=== PATIENT | female | born 1935 | race Caucasian/White ===

== ENCOUNTER 2020-11-30 08:29 | Outpatient (REF) | payer MEDICARE, SELFPAY ==
--- NOTE | ~2020-11-30 | MM_ITS ---
EXAMINATION: MM SCREENING DIGITAL BREAST TOMOSYNTHESIS, BILATERAL CLINICAL INFORMATION: Screening. Asymptomatic. Age 85 (no TC calculation applicable). COMPARISON: Mammography: 11/27/2019, 10/05/2018, 08/08/2017 TECHNIQUE: Digital breast tomosynthesis is performed in both the craniocaudal and mediolateral oblique views along with computer-aided detection (CAD). Synthesized 2D images are generated from the tomosynthesis. FINDINGS: There are scattered areas of fibroglandular density (ACR BI-RADS breast composition Category b). There are no significant masses, abnormal calcifications, or other abnormalities. Parenchymal pattern is similar to prior exams. No significant changes. MM/MM tomosynthesis screening BI IMPRESSION: No mammographic evidence of malignancy. ASSESSMENT: BI-RADS 1: Negative RECOMMENDATION: Routine annual mammography screening. This patient's information was entered into a reminder system with a target due date for their next mammogram.
== END 2020-11-30 08:30 | disposition home or self-care (01) ==
LOC: HO.MAMMO 08:29
PROVIDERS: PCP Internal Medicine; Visit Provider Internal Medicine
DX: Z12.31 Encounter for screening mammogram for malignant neoplasm of breast (principal)
CPT/HCPCS: 77063; 77067

== ENCOUNTER 2021-04-10 10:21 | Outpatient (REF) | payer MEDICARE, SELFPAY ==
[2021-04-10 10:23] LABS: MANUAL DIFF FLAG NO
[2021-04-10 10:37] LABS: Basophils Percent Auto 0.4 % (0-2); Hematocrit 42.1 % (37-47); Hemoglobin 13.6 g/dl (12.0-16.0); Imm Gran Abs Auto 0.01 X10*3/uL (0.00-0.03); Imm Gran Pct Auto 0.2 % (0.0-0.4); Lymphocytes Absolute Auto 0.9 X10*3/uL (1.2-4.9); Lymphocytes Percent Auto 19.3 % (20-40); Mean Corpuscular HGB Conc 32.3 g/dl (31.0-35.0); Mean Corpuscular Volume 92.9 fL (80-98); Mean Platelet Volume 9.1 fL (9.4-12.3); Monocytes Absolute Auto 0.6 X10*3/uL (0.1-1.2); Neutrophils Percent Auto 66.1 % (45-73); Platelet Count 293 X10*3/uL (160-400); Red Blood Count 4.53 X10*6/uL (4.20-5.50); Red Cell Distribution Width 14.2 % (11.0-16.0); White Blood Count 4.5 X10*3/uL (4.8-10.8)
[2021-04-10 10:40] LABS: Glucose Urine UA NEG (NEG); Leukocyte Esterase Urine 3+ (NEG); Nitrite Urine NEG (NEG); Urine Blood NEG (NEG); Urine Ketones NEG (NEG); Urine Protein NEG (NEG-TRACE)
[2021-04-10 10:42] LABS: Appearance Urine HAZY; Color Urine YELLOW
[2021-04-10 10:57] LABS: Bacteria Urine TRACE /LPF; RBC Urine 0 /HPF (0); Renal Epithelial Cells Urine 1+ /LPF; Squamous Epithelial Cell Urine 2+ /LPF
[2021-04-10 11:20] LABS: Alanine Aminotransferase 9 U/L (0-31); Albumin Level 4.2 g/dL (3.5-5.0); Alkaline Phosphatase 73 U/L (39-117); Anion Gap 12 (12-20); Aspartate Amino Transferase 16 U/L (5-31); Bilirubin Total 0.7 mg/dL (0.0-1.0); Blood Urea Nitrogen 12 mg/dL (9-16); Calcium 9.1 mg/dL (8.4-10.2); Carbon Dioxide 27 mmol/L (22-29); Chloride 104 mmol/L (96-108); Cholesterol 186 mg/dL; Estimated Glomerular Filt Rate > 60; Glucose Fasting 87 mg/dL (60-99); HDL Cholesterol 55 mg/dL; LDL Cholesterol Calculated 114 mg/dl; Potassium 4.6 mmol/L (3.3-5.1); Sodium 138 mmol/L (135-145); Triglycerides 87 mg/dL
== END 2021-04-10 10:22 | disposition home or self-care (01) ==
LOC: HO.LNP 10:21
PROVIDERS: Visit Provider Internal Medicine
DX: D72.819 Decreased white blood cell count, unspecified (principal); M81.0 Age-related osteoporosis without current pathological fracture; R31.9 Hematuria, unspecified; I10 Essential (primary) hypertension
CPT/HCPCS: 80053; 80061; 81001; 85025

== ENCOUNTER 2021-06-01 08:16 | Outpatient (REF) | payer MEDICARE, SELFPAY ==
--- NOTE | ~2021-06-01 | MM_ITS ---
EXAMINATION: BONE DENSITOMETRY CLINICAL INDICATION: Age-related osteoporosis without current pathological fracture. COMPARISON: Previous BD dated 09/27/2014 and baseline BD dated 09/04/2006. TECHNIQUE: Using a Relevvant DXA System (software version: 13.1) manufactured by [employer], dual-energy x-ray absorptiometry was performed of the lumbar spine and left hip. The images are of good technical quality. Summary results are attached. FINDINGS: AP SPINE L1-L4: Current: BMD 0.998 g/cm2, Z-score 0.2, T-score -1.5, osteopenia, 6.2% decrease from previous, 3.0% decrease from baseline (<5% change is not significant). Prior: BMD 1.064 g/cm2. Baseline: BMD 1.029 g/cm2. LEFT FEMUR, NECK: Current: BMD 0.777 g/cm2, Z-score 0.4, T-score -1.9, osteopenia. Prior: BMD 0.821 g/cm2. Baseline: BMD 0.839 g/cm2. LEFT FEMUR, TOTAL: Current: BMD 0.808 g/cm2, Z-score 0.6, T-score -1.6, osteopenia, 3.6% decrease from previous, 6.2% decrease from baseline (<5% change is not significant). Prior: BMD 0.838 g/cm2. Baseline: BMD 0.861 g/cm2. IDENTIFIED RISK FACTORS: Height loss, family history (parental hip fracture), menopause. HISTORY OF FRACTURE: None listed. MEDICATIONS: Calcium supplements or multivitamin, vitamin D. MM/XR DEXA axial skeleton IMPRESSION: 1. DIAGNOSIS: Osteopenia based on the lowest T-score value of -1.9 in the femoral neck applying World Health Organization criteria. 2. 10-YEAR FRACTURE RISK PREDICTION, FRAX: Major osteoporotic fracture (clinical spine, forearm, hip or shoulder) 27.6%. Hip fracture 18.2%. 3. Treatment Recommendations: NOF guidelines recommend consideration for treatment in postmenopausal women and men age 50 and older presenting with the following: -A hip or vertebral (clinical or morphometric) fracture. -T-score less than or equal to -2.5 at the femoral neck or spine after appropriate evaluation to exclude secondary causes. -Low bone mass at the hip or spine and a 10-year fracture probability by FRAX of greater than or equal to 3% for hip fracture or greater than or equal to 20% for major osteoporotic fracture based on the [place] adapted WHO algorithm. 4. Other Recommendations: All treatment decisions require clinical judgment and consideration of individual patient factors, including patient preferences, comorbidities, previous drug use, risk factors not captured in the FRAX model (e.g. frailty, falls, vitamin D deficiency, increased bone turnover, interval significant decline in bone density) and possible under or overestimation of fracture risk by FRAX. Additional medical evaluation for secondary cause of low bone mineral density may be appropriate. FUTURE SCAN RECOMMENDATION: People with diagnosed cases of osteoporosis or at high risk for fracture should have regular bone mineral density tests. For patients eligible for Medicare, routine testing is allowed once every 2 years. The testing frequency can be increased to one year for patients who have rapidly progressing disease, those who are receiving or discontinuing medical therapy to restore bone mass, or have additional risk factors.
== END 2021-06-01 08:17 | disposition home or self-care (01) ==
LOC: HO.MAMMO 08:16
PROVIDERS: PCP Internal Medicine; Visit Provider Internal Medicine
DX: M81.0 Age-related osteoporosis without current pathological fracture (principal); Z78.0 Asymptomatic menopausal state
CPT/HCPCS: 77080

== ENCOUNTER 2021-12-19 11:56 | Outpatient (REF) | payer MEDICARE, SELFPAY ==
--- NOTE | ~2021-12-19 | MM_ITS ---
EXAMINATION: MM SCREENING DIGITAL BREAST TOMOSYNTHESIS, BILATERAL CLINICAL INFORMATION: Screening. Asymptomatic. COMPARISON: Mammography: 11/30/2020, 11/27/2019, 10/05/2018, 08/08/2017 TECHNIQUE: Digital breast tomosynthesis is performed in both the craniocaudal and mediolateral oblique views along with computer-aided detection (CAD). Synthesized 2D images are generated from the tomosynthesis. FINDINGS: There are scattered areas of fibroglandular density (ACR BI-RADS breast composition Category b). There are no significant masses, abnormal calcifications, or other abnormalities. Parenchymal pattern is similar to prior studies. There is no developing density or architectural abnormality. There are some dermal lesions on tomography overlying the posterior left breast. The axilla are unremarkable. No significant changes. MM/MM tomosynthesis screening BI IMPRESSION: No mammographic evidence of malignancy. ASSESSMENT: BI-RADS 2: Benign RECOMMENDATION: Routine annual mammography screening. This patient's information was entered into a reminder system with a target due date for their next mammogram.
== END 2021-12-19 11:57 | disposition home or self-care (01) ==
LOC: HO.MAMMO 11:56
PROVIDERS: Visit Provider Internal Medicine
DX: Z12.31 Encounter for screening mammogram for malignant neoplasm of breast (principal)
CPT/HCPCS: 77063; 77067

== ENCOUNTER 2022-04-09 10:37 | Outpatient (REF) | payer MEDICARE, SELFPAY ==
[2022-04-09 10:39] LABS: MANUAL DIFF FLAG NO
[2022-04-09 11:29] LABS: Basophils Percent Auto 0.6 % (0-2); Hematocrit 40.6 % (37.0-47.0); Imm Gran Abs Auto 0.01 X10*3/uL (0.00-0.03); Imm Gran Pct Auto 0.2 % (0.0-0.4); Lymphocytes Absolute Auto 0.7 X10*3/uL (1.2-4.9); Lymphocytes Percent Auto 14.1 % (20-40); Mean Corpuscular Hemoglobin 30.2 pg (27.0-33.0); Mean Corpuscular Volume 94.2 fL (80.0-98.0); Mean Platelet Volume 9.1 fL (9.4-12.3); Monocytes Absolute Auto 0.7 X10*3/uL (0.1-1.2); Monocytes Percent Auto 14.5 % (2-11); Neutrophils Absolute Auto 3.6 x10*3/uL (2.0-8.3); Neutrophils Percent Auto 70.6 % (45-73); Platelet Count 253 X10*3/uL (160-400); Red Blood Count 4.31 X10*6/uL (4.20-5.50); Red Cell Distribution Width 14.1 % (11.0-16.0); White Blood Count 5.1 X10*3/uL (4.8-10.8)
[2022-04-09 11:44] LABS: Alanine Aminotransferase 9 U/L (0-31); Alkaline Phosphatase 66 U/L (39-117); Anion Gap 11 (12-20); Appearance Urine CLEAR; Aspartate Amino Transferase 14 U/L (5-31); Bilirubin Total 0.7 mg/dL (0.0-1.0); Blood Urea Nitrogen 13 mg/dL (9-16); Calcium 9.1 mg/dL (8.4-10.2); Carbon Dioxide 27 mmol/L (22-29); Chloride 103 mmol/L (96-108); Cholesterol 186 mg/dL; Color Urine STRAW; Estimated Glomerular Filt Rate > 60; Glucose Fasting 89 mg/dL (60-99); Glucose Urine UA NEG (NEG); HDL Cholesterol 55 mg/dL; LDL Cholesterol Calculated 117 mg/dl; Leukocyte Esterase Urine 2+ (NEG); Nitrite Urine NEG (NEG); Potassium 4.3 mmol/L (3.3-5.1); Sodium 137 mmol/L (135-145); Total Protein 6.8 g/dL (6.5-8.0); Triglycerides 71 mg/dL; Urine Blood NEG (NEG); Urine Ketones NEG (NEG); Urine Protein NEG (NEG-TRACE)
[2022-04-09 12:25] LABS: Bacteria Urine 3+ /LPF; RBC Urine 0 /HPF (0); Squamous Epithelial Cell Urine 2+ /LPF
== END 2022-04-09 10:38 | disposition home or self-care (01) ==
LOC: HO.LNP 10:37
PROVIDERS: Visit Provider Internal Medicine
DX: I10 Essential (primary) hypertension (principal); D72.819 Decreased white blood cell count, unspecified
CPT/HCPCS: 80053; 80061; 81001; 85025

== ENCOUNTER 2022-04-18 15:45 | Outpatient (REF) | payer MEDICARE, SELFPAY ==
[2022-04-18 16:51] LABS: Folate 10.6 ng/mL (> or = 4.0); Vitamin B12 296 pg/mL (200-900)
== END 2022-04-18 15:46 | disposition home or self-care (01) ==
LOC: HO.LNP 15:45
PROVIDERS: Visit Provider Internal Medicine
DX: G62.9 Polyneuropathy, unspecified (principal)
CPT/HCPCS: 82607; 82746

== ENCOUNTER 2022-05-30 09:47 | Outpatient (REF) | payer MEDICARE, SELFPAY ==
--- NOTE | ~2022-05-30 | XR_ITS ---
EXAMINATION: XR lumbar spine 2-3V CLINICAL INFORMATION: Reason for Exam DEGENERATIVE JOINT DISEASE COMPARISON: None TECHNIQUE: 3 views of the lumbar spine FINDINGS: 5 nonrib-bearing lumbar-type vertebral bodies. Vertebral body heights are maintained. S-shaped scoliosis of the thoracolumbar spine. Moderate multilevel degenerative disc disease with loss of disc space height, facet arthropathy and disc osteophyte complexes. This is worst at L4-L5 and L5-S1. Paravertebral soft tissues are unremarkable. XR/XR lumbar spine 2-3V IMPRESSION: * Moderate spondylosis of the lumbar spine, as above detailed. * S-shaped scoliosis of the thoracolumbar spine.
== END 2022-05-30 09:48 | disposition home or self-care (01) ==
LOC: HO.XRAY 09:47
PROVIDERS: PCP Internal Medicine; Visit Provider Physical Medicine & Rehabilitation
DX: M51.36 Other intervertebral disc degeneration, lumbar region (principal)
CPT/HCPCS: 72100

== ENCOUNTER 2022-08-26 16:08 | Outpatient (REF) | payer MEDICARE, SELFPAY ==
[2022-08-26 16:17] LABS: Appearance Urine Cloudy; Color Urine Yellow; Glucose Urine UA Negative (Negative); Leukocyte Esterase Urine Small (1+) (Negative); Nitrite Urine Positive (Negative); UMIC TRIGGER UA YES; Urine Blood Negative (Negative); Urine Ketones Negative (Negative); Urine Protein Negative (Neg-Trace)
[2022-08-26 16:22] LABS: Bacteria Urine 4+ (None Seen); Hyaline Casts Urine 0-2 /LPF (0-2); RBC Urine 0-2 /HPF (0-2); Squamous Epithelial Cell Urine 0-2 /HPF (0-2); WBC Urine 21-50 /HPF (0-5)
== END 2022-08-26 16:09 | disposition home or self-care (01) ==
LOC: HO.LNP 16:08
PROVIDERS: Visit Provider Internal Medicine
DX: N30.00 Acute cystitis without hematuria (principal)
CPT/HCPCS: 81001; 87086; 87088; 87186

== ENCOUNTER 2022-09-06 10:42 | Outpatient (REF) | payer MEDICARE, SELFPAY ==
[2022-09-06 11:09] LABS: Appearance Urine Clear; Color Urine Yellow; Glucose Urine UA Negative (Negative); Leukocyte Esterase Urine Moderate (2+) (Negative); Nitrite Urine Negative (Negative); PH 7.5 (5.0-9.0); Specific Gravity - Urine 1.015 (1.005-1.025); UMIC TRIGGER UA YES; Urine Blood Negative (Negative); Urine Ketones Negative (Negative); Urine Protein Trace mg/dL (Neg-Trace)
[2022-09-06 11:15] LABS: Bacteria Urine None Seen (None Seen); Hyaline Casts Urine 0-2 /LPF (0-2); RBC Urine 0-2 /HPF (0-2)
== END 2022-09-06 10:43 | disposition home or self-care (01) ==
LOC: HO.LNP 10:42
PROVIDERS: Visit Provider Internal Medicine
DX: Z13.89 Encounter for screening for other disorder (principal)
CPT/HCPCS: 81001; 87086

== ENCOUNTER 2022-09-20 15:53 | Outpatient (REF) | payer MEDICARE, SELFPAY ==
[2022-09-20 16:07] LABS: Appearance Urine Cloudy; Color Urine Yellow; Glucose Urine UA Negative (Negative); Leukocyte Esterase Urine Large (3+) (Negative); Nitrite Urine Positive (Negative); PH 6.5 (5.0-9.0); Specific Gravity - Urine 1.015 (1.005-1.025); UMIC TRIGGER UA YES; Urine Blood Trace (Negative); Urine Ketones Negative (Negative); Urine Protein Negative (Neg-Trace)
[2022-09-20 16:12] LABS: Bacteria Urine 4+ (None Seen); Hyaline Casts Urine 0-2 /LPF (0-2); RBC Urine 0-2 /HPF (0-2); WBC Urine >50 /HPF (0-5)
== END 2022-09-20 15:54 | disposition home or self-care (01) ==
LOC: HO.LNP 15:53
PROVIDERS: Visit Provider Internal Medicine
DX: N30.00 Acute cystitis without hematuria (principal)
CPT/HCPCS: 81001; 87086; 87088; 87186

== ENCOUNTER 2022-11-12 16:07 | Outpatient (REF) | payer MEDICARE, SELFPAY ==
[2022-11-12 16:41] LABS: Appearance Urine Turbid; Color Urine Yellow; Glucose Urine UA Negative (Negative); Leukocyte Esterase Urine Large (3+) (Negative); Nitrite Urine Positive (Negative); PH 6.5 (5.0-9.0); Specific Gravity - Urine 1.015 (1.005-1.025); UMIC TRIGGER UA YES; Urine Blood Small (1+) (Negative); Urine Ketones Negative (Negative); Urine Protein 30 (1+) mg/dL (Neg-Trace)
[2022-11-12 16:44] LABS: Bacteria Urine 4+ (None Seen); Hyaline Casts Urine 0-2 /LPF (0-2); WBC Urine >50 /HPF (0-5)
== END 2022-11-12 16:08 | disposition home or self-care (01) ==
LOC: HO.LNP 16:07
PROVIDERS: Visit Provider Internal Medicine
DX: N30.00 Acute cystitis without hematuria (principal)
CPT/HCPCS: 81001; 87086; 87088; 87186

== ENCOUNTER 2022-12-03 11:21 | Outpatient (REF) | payer MEDICARE, SELFPAY ==
[2022-12-03 11:54] LABS: Appearance Urine Clear; Color Urine Yellow; Glucose Urine UA Negative (Negative); Leukocyte Esterase Urine Trace (Negative); Nitrite Urine Negative (Negative); Specific Gravity - Urine 1.015 (1.005-1.025); UMIC TRIGGER UACC YES; Urine Blood Negative (Negative); Urine Ketones Negative (Negative); Urine Protein Negative (Neg-Trace)
[2022-12-03 11:57] LABS: Bacteria Urine None Seen (None Seen); Hyaline Casts Urine 0-2 /LPF (0-2); RBC Urine 0-2 /HPF (0-2); WBC Urine 0-5 /HPF (0-5)
== END 2022-12-03 11:22 | disposition home or self-care (01) ==
LOC: HO.LNP 11:21
PROVIDERS: Visit Provider Internal Medicine
DX: N39.0 Urinary tract infection, site not specified (principal)
CPT/HCPCS: 81001; 87086

== ENCOUNTER 2022-12-23 11:03 | Outpatient (REF) | payer MEDICARE, SELFPAY ==
[2022-12-23 12:22] LABS: Vitamin B12 1057 pg/mL (200-900)
== END 2022-12-23 11:04 | disposition home or self-care (01) ==
LOC: HO.LNP 11:03
PROVIDERS: Visit Provider Internal Medicine
DX: E53.8 Deficiency of other specified B group vitamins (principal)
CPT/HCPCS: 82607

== ENCOUNTER 2022-12-25 11:31 | Outpatient (REF) | payer MEDICARE, SELFPAY ==
--- NOTE | ~2022-12-25 | MM_ITS ---
EXAMINATION: MM SCREENING DIGITAL BREAST TOMOSYNTHESIS, BILATERAL CLINICAL INFORMATION: Screening. Asymptomatic. COMPARISON: Mammography: 12/19/2021, 11/30/2020, 11/27/2019 TECHNIQUE: Digital breast tomosynthesis is performed in both the craniocaudal and mediolateral oblique views along with computer-aided detection (CAD). Synthesized 2D images are generated from the tomosynthesis. FINDINGS: There are scattered areas of fibroglandular density (ACR BI-RADS breast composition Category b). There are no significant masses, abnormal calcifications, or other abnormalities. No architectural abnormality or developing density or significant change from prior studies. MM/MM tomosynthesis screening BI IMPRESSION: No mammographic evidence of malignancy. ASSESSMENT: BI-RADS 1: Negative RECOMMENDATION: Routine annual mammography screening. This patient's information was entered into a reminder system with a target due date for their next mammogram.
== END 2022-12-25 11:32 | disposition home or self-care (01) ==
LOC: HO.MAMMO 11:31
PROVIDERS: PCP Internal Medicine; Visit Provider Internal Medicine
DX: Z12.31 Encounter for screening mammogram for malignant neoplasm of breast (principal)
CPT/HCPCS: 77063; 77067

== ENCOUNTER 2023-04-14 10:32 | Outpatient (REF) | payer MEDICARE, SELFPAY ==
[2023-04-14 10:42] LABS: MANUAL DIFF FLAG NO
[2023-04-14 10:57] LABS: Basophils Percent Auto 0.3 % (0-2); Hematocrit 42.9 % (37.0-47.0); Hemoglobin 14.2 g/dl (12.0-16.0); Imm Gran Abs Auto 0.02 X10*3/uL (0.00-0.03); Imm Gran Pct Auto 0.3 % (0.0-0.4); Lymphocytes Absolute Auto 0.8 X10*3/uL (1.2-4.9); Lymphocytes Percent Auto 13.3 % (20-40); Mean Corpuscular HGB Conc 33.1 g/dl (31.0-35.0); Mean Corpuscular Volume 93.7 fL (80.0-98.0); Mean Platelet Volume 9.2 fL (9.4-12.3); Monocytes Absolute Auto 0.7 X10*3/uL (0.1-1.2); Monocytes Percent Auto 12.8 % (2-11); Neutrophils Absolute Auto 4.2 x10*3/uL (2.0-8.3); Neutrophils Percent Auto 73.3 % (45-73); Platelet Count 275 X10*3/uL (160-400); Red Blood Count 4.58 X10*6/uL (4.20-5.50); Red Cell Distribution Width 14.2 % (11.0-16.0); White Blood Count 5.8 X10*3/uL (4.8-10.8)
[2023-04-14 10:58] LABS: Appearance Urine Clear; Color Urine Yellow; Glucose Urine UA Negative (Negative); Leukocyte Esterase Urine Large (3+) (Negative); Nitrite Urine Negative (Negative); PH 6.5 (5.0-9.0); Specific Gravity - Urine 1.015 (1.005-1.025); UMIC TRIGGER UACC YES; Urine Blood Negative (Negative); Urine Ketones Negative (Negative); Urine Protein Negative (Neg-Trace)
[2023-04-14 11:00] LABS: Bacteria Urine None Seen (None Seen); Hyaline Casts Urine 0-2 /LPF (0-2); UACC Culture Trigger YES
[2023-04-14 11:31] LABS: Alanine Aminotransferase 12 U/L (0-31); Albumin Level 4.1 g/dL (3.5-5.0); Alkaline Phosphatase 71 U/L (39-117); Anion Gap 14 (12-20); Aspartate Amino Transferase 15 U/L (5-31); Blood Urea Nitrogen 16 mg/dL (9-16); Calcium 9.3 mg/dL (8.4-10.2); Chloride 104 mmol/L (96-108); Cholesterol 199 mg/dL; Estimated Glomerular Filt Rate > 60; Glucose Fasting 92 mg/dL (60-99); HDL Cholesterol 59 mg/dL; LDL Cholesterol Calculated 127 mg/dl; Potassium 4.4 mmol/L (3.3-5.1); Sodium 140 mmol/L (135-145); Total Protein 6.8 g/dL (6.5-8.0); Triglycerides 68 mg/dL
[2023-04-14 11:46] LABS: Carbon Dioxide 26 mmol/L (22-29)
== END 2023-04-14 10:33 | disposition home or self-care (01) ==
LOC: HO.LNP 10:32
PROVIDERS: Visit Provider Internal Medicine
DX: I10 Essential (primary) hypertension (principal); D72.819 Decreased white blood cell count, unspecified; R82.90 Unspecified abnormal findings in urine
CPT/HCPCS: 80053; 80061; 81001; 85025; 87086

== ENCOUNTER 2023-05-15 13:29 | Outpatient (REF) | payer MEDICARE, SELFPAY ==
[2023-05-15 13:52] LABS: Appearance Urine Clear; Color Urine Yellow; Glucose Urine UA Negative (Negative); Leukocyte Esterase Urine Trace (Negative); Nitrite Urine Negative (Negative); Specific Gravity - Urine 1.015 (1.005-1.025); UMIC TRIGGER UACC YES; Urine Blood Negative (Negative); Urine Ketones Negative (Negative); Urine Protein Negative (Neg-Trace)
[2023-05-15 13:56] LABS: Bacteria Urine None Seen (None Seen); Hyaline Casts Urine 0-2 /LPF (0-2); RBC Urine 0-2 /HPF (0-2); Squamous Epithelial Cell Urine 0-2 /HPF (0-2); WBC Urine 0-5 /HPF (0-5)
== END 2023-05-15 13:30 | disposition home or self-care (01) ==
LOC: HO.LNP 13:29
PROVIDERS: Visit Provider Internal Medicine
DX: R31.9 Hematuria, unspecified (principal)
CPT/HCPCS: 81001

== ENCOUNTER 2023-06-28 22:24 | Emergency (ER) | payer MEDICARE, SELFPAY ==
--- NOTE | ~2023-06-28 | XR_ITS ---
EXAMINATION: XR RIBS, LEFT CLINICAL INFORMATION: Pain. COMPARISON: None available. TECHNIQUE: 3 views of the left ribs were obtained. FINDINGS: Lungs are clear. No consolidation, pneumothorax, or pleural effusion. The cardiomediastinal silhouette and pulmonary vasculature are normal. Osseous structures are unremarkable. Ribs are intact. No fractures are identified. XR/XR ribs LT min 3V w CXR1V IMPRESSION: No active pulmonary disease. No evidence for rib fracture
--- NOTE | ~2023-06-28 | XR_ITS ---
EXAMINATION: XR THORACOLUMBAR SPINE CLINICAL INFORMATION: Pain COMPARISON: None available. TECHNIQUE: 2 views of the thoracic spine obtained FINDINGS: There is mild curvature of the thoracolumbar spine convex to the left. The lateral alignment is within normal limits. There is mild diffuse thoracic disc degenerative change with mild loss of disc space, endplate change and mild osteophyte formation. There is no fracture. The soft tissues are unremarkable. XR/XR thoracic spine 2V IMPRESSION: Thoracic disc degenerative change with mild curvature of the thoracolumbar spine to the left. There is no evidence for fracture
[2023-06-28 22:35] VITALS: BP 190/90; PULSE 108; O2SAT 98; BMI 26.6
[2023-06-28 22:48] VITALS: BP 174/85; PULSE 76; RESP 16; TEMP 36.5; O2SAT 97
--- NOTE | 2023-06-28 22:49 | PC.NURSE ---
Pt brougt in by [employer] for reports of intermittent back pain 7/10 for approximately 3 hours. Pt denies and recent fall or injury, did not lift carry or bend in anyway prior that she believes contributed. Pt Denies any other symptoms at this time. Given warm packs which she felt immediately felt better. Awaiting provider. Will continue to monitor.
[2023-06-28] MEDS: Lidocaine 4 % Patch ADH..PATCH 1 PATCH TRANSDERMA (23:07)
--- NOTE | 2023-06-28 23:13 | PC.NURSE ---
Lidocaine patch applied to pt back.
--- NOTE | 2023-06-28 23:14 | PC.NURSE ---
Pt asked if [facility] gave her cell phone, I explained they did not. This RN called [facility] and spoke with fire men [place] who was reaching out to fire fighters who brought pt in. Pt made aware.
--- NOTE | 2023-06-28 23:22 | ED.BACK ---
HPI - Back Pain/Injury General Chief Complaint: Back Pain/Injury Stated Complaint: BACK PAIN Time Seen by Provider: 06/28/23 22:31 Source: patient and old records reviewed Mode of arrival: EMS Limitations: no limitations History of Present Illness HPI Narrative: 88 yo female no PMH takes only eye drops here with c/o L atraumatic thoracic paraspinal pain not pleuritic no rash no infectious symptoms that started earlier today and she was nervous as she lives alone. It is not made worse with movements but does hurt to touch. MD elicited complaint: back pain Onset (ago): hour(s) (3) Timing: constant Severity: mild Similar Symptoms Previously: No Quality: sharp Location: thoracic spine Radiation: none Exacerbating factors: other (palpation) Relieving factors: none Associated symptoms: denies other symptoms Work related injury: No Related Data Previous Rx's Medication Instructions Recorded lidocaine 5 % topical patch 1 patch topical DAILY #30 ea 06/29/23 Allergies Allergy/AdvReac Type Severity Reaction Status Date / Time No Known Allergies Allergy Unverified 07/06/20 15:55 [No Known Allergies*] Review of Systems Review of Systems: Constitutional : No Weight loss, No Fever, No Chills, ENT/Mouth : No Hearing loss, No Ear Pain, No Nasal Congestion, No Sinus Pain, No Hoarseness, No sore throat, No Rhinorrhea, No Swallowing Difficulty Cardiovascular : No Chest Pain, No SOB Respiratory : No Cough, No Dyspnea Gastrointestinal : No Nausea, No Vomiting, No Diarrhea, No abdominal Pain, No Hematochezia, No Melena Genitourinary : No Dysuria, No Urinary Frequency, No Hematuria, No Urinary Incontinence, Musculoskeletal : positive back pain Skin : No Skin Lesions, No rash Neuro : No Weakness, No Numbness, No Paresthesias, no loss of bowel or bladder incontinence, no saddle anesthesia All other systems reviewed and are negative [facility] Past Medical History Attestation statement: The following information was validated with the patient. Medical History No pertinent past medical history Social History Social History Alcohol intake: current Alcohol intake frequency: holidays/special occasions only Smoked in Last 30 Days: No Use of substances other than those prescribed or required for medical reasons: No Advance Directives: No Advance Directives Information Provided: No Physical Exam Vital Signs: Vital Signs: Last Vital Signs Temp 97.7 F 06/28/23 22:48 Pulse 75 06/28/23 23:42 Resp 18 06/28/23 23:42 BP 177/93 H 06/28/23 23:42 Pulse Ox 96 06/28/23 23:42 O2 Del Method Room Air 06/28/23 23:42 BMI result Body Mass Index 26.6 Appearance: Alert. Oriented X3. No acute distress. Eyes: Pupils equal, round and reactive to light. ENT: Pharynx normal. Neck: Normal inspection. Neck supple. CVS: Normal heart rate and rhythm. Pulses normal. Back: L thoracic just at line inferior to scapule paraspinal focal area of ttp no rash no mass Respiratory: No respiratory distress. Breath sounds normal. Abdomen: Soft and nontender. Skin: Skin warm and dry. Normal skin color. Normal skin turgor. Extremities: No lower extremity edema. No calf ttp Neuro: Oriented X 3. No motor deficit. No sensory deficit. Medications Administered Discontinued Medications Generic Name Dose Route Start Last Admin Trade Name Freq PRN Reason Stop Dose Admin Lidocaine 1 patch 06/28/23 22:59 06/28/23 23:07 Lidocaine 4 % Patch Adh..Patch TRANSDERMA 06/28/23 23:00 1 patch ONCE ONE Administration Protocol Medical Decision Making Medical Decision Making MDM Narrative: healthy 88 yo female here with c/o atraumatic L back pain no rash, no URI symptoms to suggest pneumonia, no hypoxia/tachycardia/signs of DVT not pleuritic and no pain with respirations doubt VTE. It does hurt to touch will apply lidocaine patch and obtain xrays for fracture/compression fracture. no chest pain, no dyspnea, no nausea, abdominal pain to suggest dissection, ACS, AAA. Differential Diagnosis Differential Diagnoses: The differential diagnosis associated with the presentation includes strain, shingles, compression fracture doubt VTE not pleuritic no hypoxia and no tachycardia Admission/Observation Consideration of admission/observation: Escalation of care including admission/observation considered no acute findings feels safe for DC can go home Independent Interpretation I performed an independent interpretation of an: Plain X-Ray (no fractures) Radiology Impression Discussion of test interpretation with radiology: I have reviewed the radiologist's reading. Prescription Management I considered prescription management with: Other (lidocaine patch) Discharge Plan Discharge Clinical Impression: Thoracic back pain Qualifiers: Chronicity: acute Back pain laterality: left Qualified Code(s): M54.6 - Pain in thoracic spine Patient Disposition: Home, Self-Care Instructions: Thoracic Pain (ED) Additional Instructions: there was some degenerative changes of the spine. return for fevers, rash, difficulty breathing pain in the chest, urinary symptoms, pain with breathing or any other concerns. you can take tylenol for pain or use the pain patches. Prescriptions: New lidocaine 5 % adhesive patch,medicated 1 patch topical DAILY Qty: 30 0RF Rx Instructions: leave on most painful area for up to 12 hrs Interventions: ED Discharge Assessment Last Done: 06/29/23 01:02 Discharge Date/Time: 06/29/23 01:02
[2023-06-28 23:42] VITALS: BP 177/93; PULSE 75; RESP 18; O2SAT 96
--- NOTE | 2023-06-28 23:43 | MHC.EDTECH ---
Hourly rounds and vitals completed, is at bedside
== END 2023-06-29 01:02 | disposition home or self-care (01) ==
PROVIDERS: Emergency Provider Emergency Medicine
DX: M54.6 Pain in thoracic spine (principal)
CPT/HCPCS: 71101; 72070; 99283; 99284

== ENCOUNTER 2024-01-06 08:19 | Outpatient (REF) | payer MEDICARE, SELFPAY | END 2024-01-06 08:20 | disposition home or self-care (01) | LOC: HO.MAMMO 08:19 | PROVIDERS: PCP Internal Medicine; Visit Provider Internal Medicine | DX: Z12.31 Encounter for screening mammogram for malignant neoplasm of breast (principal) | CPT/HCPCS: 77063; 77067 ==

== ENCOUNTER → 2024-01-06 08:30 | Outpatient (BNV) | payer MEDICARE, SELFPAY | PROVIDERS: PCP Internal Medicine; Visit Provider Radiology Diagnostic Radiology | DX: Z12.31 Encounter for screening mammogram for malignant neoplasm of breast (principal) | CPT/HCPCS: 77063; 77067 ==

== ENCOUNTER 2024-01-06 13:15 | Outpatient (REF) | payer MEDICARE, SELFPAY ==
--- NOTE | ~2024-01-06 | XR_ITS ---
EXAMINATION: XR CHEST CLINICAL INFORMATION: Bronchitis COMPARISON: Left rib x-rays including frontal chest June 28, 2023 TECHNIQUE: 2 views of the chest were obtained. FINDINGS: Cardiac silhouette demonstrates similar prominence. Atherosclerotic disease of the aortic arch. The lungs are hyperinflated. Subtle patchy airspace opacities of the right lower lung, nonspecific. No pleural effusion or pneumothorax. XR/XR chest 2V IMPRESSION: Subtle patchy airspace opacities of the right lower lung. Findings may represent atelectasis, however, a developing infiltrate is also within the differential.
== END 2024-01-06 13:16 | disposition home or self-care (01) ==
LOC: HO.HMGCX 13:15
PROVIDERS: PCP Internal Medicine; Visit Provider Internal Medicine
DX: Z12.31 Encounter for screening mammogram for malignant neoplasm of breast (principal); J40 Bronchitis, not specified as acute or chronic
CPT/HCPCS: 71046; 77063; 77067

== ENCOUNTER 2024-04-20 11:53 | Outpatient (REF) | payer MEDICARE, SELFPAY ==
[2024-04-20 11:55] LABS: MANUAL DIFF FLAG NO
[2024-04-20 12:23] LABS: Basophils Percent Auto 0.6 % (0-2); Hematocrit 40.1 % (37.0-47.0); Hemoglobin 13.2 g/dl (12.0-16.0); Imm Gran Abs Auto 0.02 X10*3/uL (0.00-0.03); Imm Gran Pct Auto 0.4 % (0.0-0.4); Lymphocytes Absolute Auto 0.7 X10*3/uL (1.2-4.9); Lymphocytes Percent Auto 14.3 % (20-40); Mean Corpuscular HGB Conc 32.9 g/dl (31.0-35.0); Mean Corpuscular Hemoglobin 31.2 pg (27.0-33.0); Mean Corpuscular Volume 94.8 fL (80.0-98.0); Monocytes Absolute Auto 0.7 X10*3/uL (0.1-1.2); Monocytes Percent Auto 13.6 % (2-11); Neutrophils Absolute Auto 3.4 x10*3/uL (2.0-8.3); Neutrophils Percent Auto 71.1 % (45-73); Platelet Count 301 X10*3/uL (160-400); Red Blood Count 4.23 X10*6/uL (4.20-5.50); Red Cell Distribution Width 14.1 % (11.0-16.0); White Blood Count 4.8 X10*3/uL (4.8-10.8)
[2024-04-20 12:45] LABS: Alanine Aminotransferase 9 U/L (0-31); Alkaline Phosphatase 67 U/L (39-117); Anion Gap 10 (12-20); Aspartate Amino Transferase 15 U/L (5-31); Bilirubin Total 0.6 mg/dL (0.0-1.0); Blood Urea Nitrogen 13 mg/dL (9-16); Calcium 9.8 mg/dL (8.4-10.2); Carbon Dioxide 31 mmol/L (22-29); Chloride 103 mmol/L (96-108); Cholesterol 184 mg/dL (<200); Estimated Glomerular Filt Rate > 60; Glucose Random 75 mg/dL (60-115); HDL Cholesterol 56 mg/dL (>40); LDL Cholesterol Calculated 114 mg/dL (<100); Potassium 4.3 mmol/L (3.3-5.1); Sodium 140 mmol/L (135-145); Total Protein 7.1 g/dL (6.5-8.0); Triglycerides 72 mg/dL (<150)
== END 2024-04-20 11:54 | disposition home or self-care (01) ==
LOC: HO.LNP 11:53
PROVIDERS: Visit Provider Internal Medicine
DX: I10 Essential (primary) hypertension (principal); D72.819 Decreased white blood cell count, unspecified
CPT/HCPCS: 80053; 80061; 85025

== ENCOUNTER 2024-04-29 15:50 | Outpatient (REF) | payer MEDICARE, SELFPAY ==
[2024-04-29 16:16] LABS: Appearance Urine Clear; Color Urine Yellow; Glucose Urine UA Negative (Negative); Leukocyte Esterase Urine Moderate (2+) (Negative); Nitrite Urine Negative (Negative); PH 6.5 (5.0-9.0); Specific Gravity - Urine 1.015 (1.005-1.025); UMIC TRIGGER UACC YES; Urine Blood Negative (Negative); Urine Ketones Negative (Negative); Urine Protein Negative (Neg-Trace)
[2024-04-29 16:19] LABS: Bacteria Urine 1+ (None Seen); Hyaline Casts Urine 0-2 /LPF (0-2); RBC Urine 0-2 /HPF (0-2); UACC Culture Trigger YES
== END 2024-04-29 15:51 | disposition home or self-care (01) ==
LOC: HO.LNP 15:50
PROVIDERS: Visit Provider Internal Medicine
DX: Z00.00 Encounter for general adult medical examination without abnormal findings (principal); I10 Essential (primary) hypertension; R82.90 Unspecified abnormal findings in urine
CPT/HCPCS: 81001; 87086

== ENCOUNTER 2025-01-13 08:18 | Outpatient (REF) | payer MEDICARE, SELFPAY ==
--- OUTSIDE RECORDS SUMMARY | 2025-01-13 08:40 | XMS_ITS ---
Author Organization [facility] Address [address] [place] [id number] Care Team Providers Care Maintenance Foreman Name Role Phone Olegario Lu MD Primary Care Provider Lorrie Gilman [phone] REASON FOR VISIT r/s 09/28 Encounters Encounter Location Date Provider Diagnosis [address] [address] 08/17/2024 Lorrie Shetty Plan Of Treatment Next Appt Details Provider Name:Lorrie clark, 01/18/2025 09:15:00 AM, [address] [place] [address], [phone], Progress Notes * Deedee ALLEN LDOB: [birth year] (89 yo F)Acc No.[id number]:08/17/2024 Patient:?Deedee Allen :1935???Age:89 Y???Sex:Female Address:[address] [place] [address] * true * Date:? Generated for Printi edgar/Ananth/eTransmitting on:?01/13/2025 08:39 AM EDT
--- OUTSIDE RECORDS SUMMARY | 2025-01-13 08:40 | XMS_ITS ---
Author Organization [facility] Address [address] [place] [id number] Care Team Providers Care Supercharge Repair Supervisor Name Role Phone Olegario Lu MD Primary Care Provider Lorrie Gilman [phone] Encounters Encounter Location Date Provider Diagnosis [address] [address] 09/28/2024 Lorrie Shetty Plan Of Treatment Next Appt Details Provider Name:Lorrie clark, 01/18/2025 09:15:00 AM, [address] [place], [phone], Progress Notes * Deedee ALLEN LDOB: [birth year] (89 yo F)Acc No.[id number]:09/28/2024 Progress Note Patient:?Deedee ALLEN Provider:?Lorrie Shetty DPM :1935???Age:89 Y???Sex:Female D ate:09/28/2024 Address:[address] [place], [place] [id number] Pcp:Olegario Lu MD Subjective: * Chief Complaints: * ??? * Medical History:? Objective: * Vitals:? Assessment: Plan: * Treatment: * Images: * The named appointment provid er may or may not be the originator of this progress note, and it is not deemed complete until electronically signed by the appointment provider. Sign off status: Pending * Provider:?Lorrie Shetty DPM Date:?07/2024 Generated for Kate hernández/Ananth/Ad on:?01/13/2025 08:40 AM EDT
--- OUTSIDE RECORDS SUMMARY | 2025-01-13 08:40 | XMS_ITS ---
Author Organization Olegario Lu MD Address [address] [place], [place] [id number] Care Team Providers Care Designer Writer Name Role Phone Olegario Lu Primary Care Provider Allergies No Known Allergies Results Component Value Reference Range Notes Occult Blood, Stool, Guaiac Reviewed date:04/29/2024 01:27:35 PM Interpretation:Negative Performing Lab: Notes/Report: Negative Occult Blood, Stool, Guaiac Neg UA ClnCatch+Micro w/rflx Cul t Reviewed date:04/29/2024 04:25:02 PM Interpretation: Performing Lab:[facility], [address] [place] [phone] Notes/Report: Urine, Clean Catch Color Urine Yellow Appearance Urine Clear PH 6.5 5.0-9.0 Glucose Urine UA Negative Negative mg/dL Urine Blood Negative Negative Specific [place] - Urine 1.015 1.005-1.025 Urine Protein Negative Neg-Trace mg/dL Urine Ketones Negative Negative mg/dL Nitrite Urine Negative Negative Leukocyte Esterase Urine Moderate (2+) Negative RBC Urine 0-2 0-2 /HPF WBC Urine 11-20 0-5 /HPF Squamous Epithelial Cell Urine 11-20 0-2 /HPF Bacteria Urine 1+ None Seen Hyaline Casts Urine 0-2 0-2 /LPF REASON FOR VISIT review labs Medications Medication SIG (Take, Route, Fr equency, Duration) Notes Start Date End Date Status Calcarb 600 1500 MG 1 tablet with food O rally Twice a day Active Timoptic 0.25 % 1 drop into affected eye Ophthalmic Once a day Active Social History Tobacco Use: Social History Observation Description Date Details (start date - stop date) Never Smoker NA - NA Tobacco Use/Smoking Question Answer Notes Patient is a nonsmoker Additional Findings: Tobacco Non-User Cu rrent non-smoker, currently using no form of tobacco Alcohol Screen Question Answer Notes Did you have a drink contain ing alcohol in the past year? Yes How often did you have a dri nk containing alcohol in the past year? Monthly or less (1 point) How many drinks did you have on a typical day when you were drinking in the past year? 1 or 2 drinks (0 point) How often did you have 6 or more drinks on one occasion in the past year? Never (0 point) Points 1 Interpretation Negative Vital Signs Blood pressure systolic 158 mm Hg 04/29/20 24 Blood pressure diastolic 80 mm Hg 024 Height 66 in 04/29/2024 Weight 152 lbs 04/29/2024 BMI 24.53 kg/m2 04/29/2024 weight is up 2 pounds since 01-08-24 Encounters Encounter Location Date Provider Diagnosis Olegario Lu MD [address] [place] [phone] 04/29/2024 Olegario Lu Labile hypertension I10 ; Leukopenia, unspecified type D72.819 ; Neuropathy G62.9 ; Colon cancer screening Z12.11 and Encounter for screening for depression Z13.31 Assessments Encounter Date Diagnosis (ICD Code) Assessment Notes Treatment Notes Treatment Clinical Notes Section Notes 04/29/2024 Labile hypertension (ICD-10 - I10) stable, will continue to monitor 04/29/2024 Leukopenia, unspecified type (ICD-10 - D72.819) stable, will continue to monitor 04/29/2024 Neuropathy (ICD-10 - G62.9) stable 04/29/2024 Colon cancer screening (ICD-10 - Z12.11) guaiac negative 04/29/2024 Encounter for screening for depression (ICD-10 - Z13.31) negative screen Plan Of Treatment Treatment Notes Assessment Notes Labile hypertension stable, will continu e to monitor Leukopenia, unspecified type stable, zulma l continue to monitor Neuropathy stable Colon cancer screening guaiac negative Encounter for screening for depression n egative screen Next Appt Details Follow Up: 1 Year, Reason: Provider Name:Olegario cortez, 04/25/2025 08:00:00 AM, [address], [address], [place], [place], [phone], Provider Name:Olegario Kendrickgabriella shebar, 05/02/2025 10:30:00 AM, [address] [facility], [address], [place], [place], [phone], Progress Notes * Deedee ALLEN LDOB: [birth year] (89 yo F)Acc No.[id number]:04/29/2024 Patient:?Deedee Allen Provider:?Olegario Lu MD :1935???Age:89 Y???Sex:Female D ate:04/29/2024 Address:[address] [place], [place] [id number] Subjective: * Chief Complaints: * ???Review labs * HPI: ???Depression Screening:?PHQ-9?Little interest or pleasure in doing things?Not at all,?Feeling down, depressed, or hopeless?Not at all,?Trouble falling or staying asleep, or sleeping too much?Not at all,?Feeling tired or having little energy?Not at all,?Poor appetite or overeating?Not at all,?Feeling bad about yourself or that you are a failure, or have let yourself or your family down?Not at all,?Trouble concentrating on things, such as reading the newspaper or watching television?Not at all,?Moving or speaking so slowly that other people could have noticed; or the opposite, being so fidgety or restless that you have been moving around a lot more than usual?Not at all,?Thoughts that you would be better off or of hurting yourself in some way?Not at all,?Total Score?0.?Interpretation and Intervention?Depression Screening Findings?Negative,?Follow-Up for Depression?: review of PHQ-9 found negative result, no follow-up needed.?Communication Needs:?Communication Needs?Does the patient have a hearing impairment?No,?Does the patient have a vision impairment??Yes,?If yes, what is the vision impairment??Glasses,?Does the patient have a cognition impairment??No.?Fall Risk:?History?Have you had any falls with injury in the past year??No,?Have you had two or more falls in the past year??No.?SDOH Questions:?SDOH Questions?In the past year have you been worried about losing housing??No,?In the past year have you or any family members you live with been unable to get any of the following when it was really needed? Check all that apply:?None.?Symptom(s):? patient is a 89 yo female here for review of juventino machado amd follow up og chronic issues.feeling okay except for feet numbness. * ROS:?General/Constitutional:?Patient denies?chills , fatigue , fever , headache.?ENT:?Patient denies?decreased sense of smell , any loss of taste , sore throat.?Respiratory:?Patient denies?shortness of breath at rest shortness of breath with exertion.?Cardiovascular:?Patient denies?chest pain at rest chest pain with exertion.?Gastrointestinal:?Patient denies?abdominal pain.?Genitourinary:?Patient denies?difficulty urinating frequent urination.?Musculoskeletal:?Patient denies?muscle aches.?Peripheral Vascular:?Patient denies?red and blue toes.?patient had an er visit [facility] jun 2023 for thorax pain. * Medical History:? * Surgical History:? * Hospitalization/Major Diagno stic Procedure:? * Family History:?Father: dece ased 90 yrs.?Mother: 35 yrs.?3 son(s) , 1 daughter(s) . .? Mother- cardiac 2 sisiters 1 brother NO family of drug abuse or mental illness, Denies mental health/substance abuse family history, No pertinent family medical history, No pertinent family medical history, Denies mental health/substance abuse family history. * Social History:?Tobacco Use:?Tobacco Use/Smoking?Patient is a?nonsmoker,?Additional Findings: Tobacco Non-User?Current non-smoker, currently using no form of tobacco.?Drugs/Alcohol:?Alcohol Screen?Did you have a drink containing alcohol in the past year??Yes,?How often did you have a drink containing alcohol in the past year??Monthly or less (1 point),?How many drinks did you have on a typical day when you were drinking in the past year??1 or 2 drinks (0 point),?How often did you have 6 or more drinks on one occasion in the past year??Never (0 point),?Points?1,?Interpretation?Negative.?Miscellaneous:?Caffeine: yes, frequency:, 1-2 cups per day. Children: yes. Exercise: yes, just started weights stretching 3 times a week. Home smoke detector use: yes. Living with: significant other. Marital status: single. Occupation: retired. no Travel outside of the [place]. * Medications:?TakingTimoptic 0.25 % Solution 1 drop into affected eye Ophthalmic Once a dayCalcarb 600 1500 MG Tablet 1 tablet with food Orally Twice a dayTaking Timoptic 0.25 % Solution 1 drop into affected eye Ophthalmic Once a dayTaking Calcarb 600 1500 MG Tablet 1 tablet with food Orally Twice a dayDiscontinuedZithromax Z-Escobar 250 MG Tablet 2 tablet on the first day, then 1 tablet daily for 4 days Orally Once a dayMedication List reviewed and reconciled with the patientDiscontinued Zithromax Z-Escobar 250 MG Tablet 2 tablet on the first day, then 1 tablet daily for 4 days Orally Once a dayMedication List reviewed and reconciled with the patient * Allergies:?N.K.D.A.yes[Aller gies Verified] Objective: * Vitals:?Ht: 66, Wt:152, BMI: 24.53, BP:158/80, Repeat BP:120/84 weight is up 2 pounds since 3-21-24. * ???Past Orders: ???Lab:Lipid Panel (Order Da te 04/20/2024) (Collection Date - 04/20/2024) ? Value Reference Range ?Triglycerides 72 <150 - mg/dL ?Cholesterol 184 <200 - m g/dL ?LDL Cholesterol Calculated 114 H <100 - mg/dL ?HDL Cholesterol 56 >40 - mg/dL ???Lab:Comprehensive Met. Pa tae (Order Date - 04/20/2024) (Collection Date - 04/20/2024) ? Value Reference Range ?Sodium 140 135-145 - mmo l/L ?Bilirubin Total 0.6 0.0- 1.0 - mg/dL ?Aspartate Amino Transferase 15 5-31 - U/L ?Alanine Aminotransferase 9 0-31 - U/L ?Total Protein 7.1 6.5-8. 0 - g/dL ?Albumin Level 4.0 3.5-5. 0 - g/dL ?Alkaline Phosphatase 67 39-117 - U/L ?Potassium 4.3 3.3-5.1 - mmol/L ?Chloride 103 96-108 - mm ol/L ?Carbon Dioxide 31 H 22-29 - mmol/L ?Anion Gap 10 L 12-20 - ?Blood Urea Nitrogen 13 9-16 - mg/dL ?Creatinine 0.81 0.5-1.4 - mg/dL ?Estimated Glomerular Filt Rate > 60 - ?Glucose Random 75 60-11 5 - mg/dL ?Calcium 9.8 8.4-10.2 - m g/dL ???Lab:Complete Blood Count Auto Diff (Order Date - 04/20/2024) (Collection Date - 04/20/2024) ? Value Reference Range ?White Blood Count 4.8 4. 8-10.8 - X10*3/uL ?Red Blood Count 4.23 4.20 -5.50 - X10*6/uL ?Hemoglobin 13.2 12.0-16.0 - g/dl ?Hematocrit 40.1 37.0-47.0 - % ?Mean Corpuscular Volume 94.8 80.0-98.0 - fL ?Mean Corpuscular Hemoglobin 31.2 27.0-33.0 - pg ?Mean Corpuscular HGB Conc 32.9 31.0-35.0 - g/dl ?Red Cell Distribution Width 14.1 11.0-16.0 - % ?Platelet Count 301 160-4 00 - X10*3/uL ?Mean Platelet Volume 9.0 L 9.4-12.3 - fL ?Neutrophils Percent Auto 71.1 45-73 - % ?Imm Gran Pct Auto 0.4 0. 0-0.4 - % ?Lymphocytes Percent Auto 14.3 L 20-40 - % ?Monocytes Percent Auto 13.6 H 2-11 - % ?Eosinophils Percent Auto 0.0 0-4 - % ?Basophils Percent Auto 0.6 0-2 - % ?NRBC Pct Auto 0.0 0.0-0. 2 - /100WBC ?Neutrophils Absolute Auto 3.4 2.0-8.3 - x10*3/uL ?Imm Gran Abs Auto 0.02 0. 00-0.03 - X10*3/uL ?Lymphocytes Absolute Auto 0.7 L 1.2-4.9 - X10*3/uL ?Monocytes Absolute Auto 0.7 0.1-1.2 - X10*3/uL ?Eosinophils Absolute Auto 0.0 0.0-0.4 - X10*3/uL ?Basophils Absolute Auto 0.0 0.0-0.2 - X10*3/uL ?NRBC Abs Auto 0.000 0.0-0. 012 - X10*3/uL * Examination: ???General Examination: ?GENERAL APPEARANCE:? alert, well hydrated, in no distress , female.?HEAD:? normocephalic.?EYES:? BOTH EYES, normal.?EARS:? BOTH EARS, normal.?THROAT:? no erythema, no exudate, pharynx normal.?NECK/THYROID:? neck supple, no carotid bruit, no cervical lymphadenopathy.?SKIN:? abnormal with multiple yinka keratosis.?HEART:? no murmurs, rubs, gallops, regular rate and rhythm.?LUNGS:? no wheezes, rales, rhonchi, good air movement, clear to auscultation bilaterally.?BREASTS:? no masses palpable bilaterally.?ABDOMEN:? no hepatosplenomegaly, soft, nontender, nondistended.?RECTAL EXAM:? stool guaiac negative.? Assessment: * Assessment: 1.?Labile hypertension - I10 (Primary)?2.?Leukopenia, unspecified type - D72.819?3.?Neuropathy - G62.9?4.?Colon cancer screening - Z12.11?5.?Encounter for screening for depression - Z13.31? Plan: * Treatment: 2.?Leukopenia, unspecified t ype? Notes: stable, will continue to monitor.?? 3.?Neuropathy? Notes: stable.?? 4.?Colon cancer screening?LAB: Occult Blood, Stool, Guaiac?Negative ? Value Reference Range ?Occult Blood, Stool, Guaiac Neg Notes: guaiac negative.??5.?Encounter for screening for depression? Notes: negative screen.?? * Procedure Codes:?13908 TEST FOR BLOOD, FECES * Follow Up:?1 Year * * Sign off status: Completed true * Provider:?Olegario Lu MD Date:?0 04/29/2024 Generated for Kate hernández/Ananth/Ad on:?01/13/2025 08:39 AM EDT History and Physical Notes * HPI (History of Present Illness) Category Sub-Category Detail Notes Category Not es Symptom(s) patient is a 89 yo female here for review of juventino machado amd follow up og chronic issues.feeling okay except for feet numbness Depression Screening PHQ-9 Little inte rest or pleasure in doing things: Not at all Feeling down, depressed, or hopeless: No t at all Trouble falling or staying asleep, or sl eeping too much: Not at all Feeling tired or having little energy: N ot at all Poor appetite or overeating: Not at all Feeling bad about yourself o r that you are a failure, or have let yourself or your family down: Not at all Trouble concentrating on thi ngs, such as reading the newspaper or watching television: Not at all Moving or speaking so slowly that other people could have noticed; or the opposite, being so fidgety or restless that you have been moving around a lot more than usual: Not at all Thoughts that you would be b sarah off or of hurting yourself in some way: Not at all Total Score: 0 Interpretation and Intervention Depression Sergio gómez Findings: Negative Follow-Up for Depression: : review of PH Q-9 found negative result, no follow-up needed SDOH Questions SDOH Questions In the past year have you been worried about losing housing?: No In the past year have you or any family members you live with been unable to get any of the following when it was really needed? Check all that apply:: None Fall Risk History Have you had any falls with injury i n the past year?: No Have you had two or more falls in the year?: No Communication Needs Communication Needs Does the patient have a hearing impairment: No Does the patient have a vision impairmen t?: Yes ?If yes, what is the vision impairment?: Glasses Does the patient have a cognition impair ment?: No Examination Category Sub-Category Detail Notes Category Not es General Examination GENERAL APPEARANCE: alert, w ell hydrated, in no distress , female HEAD: normocephalic EYES: BOTH EYES, normal EARS: BOTH EARS, normal THROAT: no erythema, no exud ate, pharynx normal NECK/THYROID: neck supple, no bruce tid bruit, no cervical lymphadenopathy HEART: no murmurs, rubs, ga llops, regular rate and rhythm LUNGS: no wheezes, rales, r honchi, good air movement, clear to auscultation bilaterally ABDOMEN: no hepatosplenomegal y, soft, nontender, nondistended SKIN: abnormal with multip le yinka keratosis BREASTS: no masses palpable b ilaterally RECTAL EXAM: stool guaiac negativ e
--- OUTSIDE RECORDS SUMMARY | 2025-01-13 08:41 | XMS_ITS ---
Author Organization [facility] Address [address] [place] [address] Care Team Providers Care Pl Sql Developer Name Role Phone Olegario Lu MD Primary Care Provider Lorrie Gilman Unavailable [phone] Allergies No Known Allergies REASON FOR VISIT Painful nail(s) aggrevated by shoes causing difficulty standing/walking Medications Medication SIG (Take, Route, Fr equency, Duration) Notes Start Date End Date Status Timolol Maleate 0.5 % INSTILL ONE DROP I N THE MORNING INTO RIGHT EYE Ophthalmic for 90 Days Active Calcium Active PreserVision AREDS A ctive Social History Tobacco Use: Social History Observation Description Date Details (start date - stop date) Never Smoker NA - NA Tobacco Use/Smoking Question Answer Notes Are you a: nonsmoker Additional Findings: Tobacco Non-User Current no n-smoker Tobacco use other than smoking: Question Answer Notes Are you an other tobacco user? No Vital Signs Height 5 ft 5 in in 11/03/2024 Weight 150 lbs 11/03/2024 BMI 24.96 kg/m2 11/03/2024 Blood pressure systolic 119 mm Hg 11/03/19 25 Blood pressure diastolic 76 mm Hg 025 Encounters Encounter Location Date Provider Diagnosis [facility] [address] [place] [address] 11/03/2024 Lorrie Shetty Tinea unguium B35.1 ; Pain in right toe(s) M79.674 and Pain in left toe(s) M79.675 Assessments Encounter Date Diagnosis (ICD Code) Assessment Notes Treatment Notes Treatment Clinical Notes Section Notes 11/03/2024 Tinea unguium (ICD-10 - B35.1) 11/03/2024 Pain in right toe(s) (ICD-10 - M79.674) 11/03/2024 Pain in left toe(s) (ICD-10 - M79.675) Plan Of Treatment Next Appt Details Follow Up: 2 Months, Reason: Provider Name:Lorrie clark, 01/18/2025 09:15:00 AM, [address] [place] [address], [phone], Procedure Notes * Category Sub-Category Detail Notes Debride Nail 6-10 Nail debridement Due to the cl inical pathology outlined in the exam findings, performance of this nail treatment is medically necessary as its management by an unskilled/untrained nonprofessional would put this patients foot and overall health at risk. Therefore, debridement to affected nail(s), as described in exam ( TA, T1, T2, T3, T4, T5, T6, T7, T8, T9, ), was performed exclusively by the physician of record to reduce/remove overall nail length, girth, thickness, subungual debris, and necrotic tissue, by manual and/or electrical means through the use of a nail nipper and/or dremel-type watch crystal edge grinder, to a more viable healthy nail plate or bed tissue 6-10 nails in total. Silver nitrate was used for any petechial bleeding as necessary. Definitive antifungal treatment options, both pharmaceutical and surgical, have been reviewed and discussed with the patient. The patient solely prefers the use of intermittent/as needed professional debridement services for their nail condition and understands the need for additional periodic treatments to maintain effectiveness in symptomatic relief - [address] Progress Notes * Deedee ALLEN LDOB: [birth year] (89 yo F)Acc No.[id number]:11/03/2024 Progress Note Patient:?Deedee ALLEN Provider:?Lorrie Shetty DPM :1935???Age:89 Y???Sex:Female D ate:11/03/2024 Address:[address] [place], [place] [id number] Pcp:Olegario Lu MD Subjective: * Chief Complaints: * ???Painful nail(s) aggrevate d by shoes causing difficulty standing/walking * HPI: ???Painful Nails:?Pt States Last PCP Visit:?Date:?04/19/2024 * ROS:?General/Constitutional:?Nausea?denies.?Vomiting?denies.?Hunger Thirst?denies.?Loss appetite?denies.?Chills?denies.?Fatigue?denies.?Fever?denies.?Night Sweats?denies.?Unexplained weight loss?denies.?Unexplained weight gain?denies.?HEENTM:?Dentures?admits.?Dizziness?denies.?Glasses/contacts?admits.?Retinopathy?de nies.?Blurred/double vision?denies.?TMJ?denies.?Discharge/drainage?denies.?Implants?denies.?Sore throat?denies.?Dental implants?denies.?Hard of hearing ?denies.?Difficulty chewing/swallowing/speaking?denies.?Nose bleeds?denies.?Sore mouth?denies.?Respiratory:?On Oxygen?denies.?Pneumonia/pleurisy?denies.?Bronchitis?denies.?Emphysema?denies.?C oughing?denies.?Cough blood?denies.?Shortness of breath?denies.?Wheezing?denies.?Cardiovascular:?Pacemaker?denies.?MVP?denies.?WPW?denies.?CHF?denies.?Heart attack?denies.?Septal defect?denies.?Rapid beat?denies.?Chest pain ?denies.?Atrial Fib.?denies.?Murmur/Palpitations?admits.?Gastrointestinal:?Hemorrhoids?denies.?Stomach/Abdominal pain?denies.?Dark blood stool?denies.?Irritable bowel ?denies.?Constipation?denies.?Diarrhea?denies.?Hematology:?Swelling?denies.?Clots?denies.?Varicose Veins?denies.?Bruising?denies.?Bleeding problem?denies.?Genitourinary:?Blood urine?denies.?Frequent/Painfu/urination/bladder control?denies.?Kidney stones?denies.?Infection (UTI)?denies.?Nephropathy?admits.?sex trans dis (STD)?denies.?Prostate?denies.?Musculoskeletal:?Hammertoes?denies.?Bunions?admits.?Back Pain?denies.?Muscle Cramps/ Resting?denies.?Muscle cramps / walking?denies.?Generalized aches and pains?denies.?Weakness?denies.?Integ.:?Harper?denies.?Scars?denies.?Corns/calluses?denies.?Ingrown nails?denies.?Painful nails?denies.?Open Sores?denies.?Rashes?denies.?Neurologic:?Difficulty sleeping?denies.?Brain disorder?denies.?Numbness?admits.?Balance trouble?admits.?Confusion?denies.?Fainting/blackouts?denies.?Tingling?denies.?Tr emors?denies.? * Medical History:? * Surgical History:?torn menis cus tonsillectomy colonoscopy * Hospitalization/Major Diagno stic Procedure:?Childbirth x4 * Family History:?Mother: dece ased.?Father: .? * Social History:?Tobacco Use:?Tobacco Use/Smoking?Are you a:?nonsmoker ?Additional Findings: Tobacco Non-User?Current non-smoker ?Tobacco use other than smoking?Are you an other tobacco user??No * Medications:?TakingPreserVis ion AREDS Calcium Timolol Maleate 0.5 % Solution INSTILL ONE DROP IN THE MORNING INTO RIGHT EYE Ophthalmic Medication List reviewed and reconciled with the patientTaking PreserVision AREDS Taking Calcium Taking Timolol Maleate 0.5 % Solution INSTILL ONE DROP IN THE MORNING INTO RIGHT EYE Ophthalmic Medication List reviewed and reconciled with the patient * Allergies:?N.K.D.A.yes[Aller gies Verified] Objective: * Vitals:?Ht: 5 ft 5 in, Wt: 1 50, BMI: 24.96, Shoe size: 8.5W, BP: 119/76 mm Hg, Ht-cm: 165.1 cm, Wt-k.04 kg. * Examination: ???Nails: ?NAILS are:?Elongated, overgrown, dystrophic, lytic, greater than 3mm thick, discolored and friable with crumbly malodorous subungual debris, with pain on palpation, TA, T1, T2, T3, T4, T5, T6, T7, T8, T9.? Assessment: * Assessment: 1.?Tinea unguium - B35.1 (Pr imary)???2.?Pain in right toe(s) - M79.674???3.?Pain in left toe(s) - M79.675??? Plan: * Treatment: * Procedures:?Debride Nail 6-10:?Nail debridement?Due to the clinical pathology outlined in the exam findings, performance of this nail treatment is medically necessary as its management by an unskilled/untrained nonprofessional would put this patients foot and overall health at risk. Therefore, debridement to affected nail(s), as described in exam ( TA, T1, T2, T3, T4, T5, T6, T7, T8, T9, ), was performed exclusively by the physician of record to reduce/remove overall nail length, girth, thickness, subungual debris, and necrotic tissue, by manual and/or electrical means through the use of a nail nipper and/or dremel-type watch crystal edge grinder, to a more viable healthy nail plate or bed tissue 6- 10 nails in total. Silver nitrate was used for any petechial bleeding as necessary. Definitive antifungal treatment options, both pharmaceutical and surgical, have been reviewed and discussed with the patient. The patient solely prefers the use of intermittent/as needed professional debridement services for their nail condition and understands the need for additional periodic treatments to maintain effectiveness in symptomatic relief - 08466.? * Procedure Codes:?86500 DEBRI DE NAIL, 6 OR MORE, Modifiers: XS * Follow Up:?2 Months * Images: * Sign off status: Completed true * Provider:?Lorrie Shetty, MARIANA Date:? Generated for Kate hernández/Ananth/Ad on:?01/13/2025 08:40 AM EDT History and Physical Notes * HPI (History of Present Illness) Category Sub-Category Detail Notes Category Not es Painful Nails Pt States Last PCP Visit: Date:: 04/19/2024 Examination Category Sub-Category Detail Notes Category Not es Nails NAILS are: Elongated, overg rown, dystrophic, lytic, greater than 3mm thick, discolored and friable with crumbly malodorous subungual debris, with pain on palpation, TA, T1, T2, T3, T4, T5, T6, T7, T8, T9
--- OUTSIDE RECORDS SUMMARY | 2025-01-13 08:41 | XMS_ITS | Patient Health Record ---
Author Organization [facility] Address [address] [place] [address] Care Team Providers Care Strap Making Machine Operator Name Role Phone Olegario Lu MD Primary Care Provider Lorrie Gilman Unavailable [phone] Allergies No Known Allergies Reason For Referral No Information Medications Medication SIG (Take, Route, Fr equency, [...] Additional Findings: Tobacco Non-User Current no n-smoker Alcohol Screen Question Answer Notes Did you have a drink contain ing alcohol in the past year? Yes How often did you have a dri nk containing alcohol in the past year? Monthly or less (1 point) Points 1 Interpretation Negative Tobacco use other than smoking: Question Answer Notes Are you an other tobacco user? No Problems Problem Type SNOMED Code ICD Code Onset Dates Problem Status W/U Status Risk Notes Problem [id number] Neuropathy (G62.9) Active confirmed Vital Signs Blood pressure diastolic 76 mm Hg 11/03/2024 Height 5 ft 5 in in 11/03/2024 Blood pressure systolic 119 mm Hg 11/03/2024 Weight 150 lbs 11/03/2024 BMI 24.96 kg/m2 11/03/2024 Encounters Encounter Location Date Provider Diagnosis [facility] [address] [place] [address] 02/17/2024 Lorrie Perica Tinea unguium B35.1 ; Pain in right toe(s) M79.674 and Pain in left toe(s) M79.[address] [address] 04/27/2024 Lorrie Perica Tinea unguium B35.1 ; Pain in right toe(s) M79.674 and Pain in left toe(s) M79.[address] [address] 07/09/2024 Lorrie Perica Tinea unguium B35.1 ; Pain in right toe(s) M79.674 and Pain in left toe(s) M79.[address] [address] 11/03/2024 Lorrie Perica Tinea unguium B35.1 ; Pain in right toe(s) M79.674 and Pain in left toe(s) M79.[address] [address] 08/17/2024 Lorrie Perica Assessments Encounter Date Diagnosis (ICD Code) Assessment Notes Treatment Notes Treatment Clinical Notes Section Notes 02/17/2024 Tinea unguium (ICD-10 - B35.1) 02/17/2024 Pain in right toe(s) (ICD-10 - M79.674) 04/27/2024 Tinea unguium (ICD-10 - B35.1) 07/09/2024 Tinea unguium (ICD-10 - B35.1) 11/03/2024 Tinea unguium (ICD-10 - B35.1) 07/09/2024 Pain in right toe(s) (ICD-10 - M79.674) 11/03/2024 Pain in right toe(s) (ICD-10 - M79.674) 04/27/2024 Pain in right toe(s) (ICD-10 - M79.674) 02/17/2024 Pain in left toe(s) (ICD-10 - M79.675) 04/27/2024 Pain in left toe(s) (ICD-10 - M79.675) 11/03/2024 Pain in left toe(s) (ICD-10 - M79.675) 07/09/2024 Pain in left toe(s) (ICD-10 - M79.675) Plan Of Treatment Next Appt Details Provider Name:Lorrie Willi clark, 01/18/2025 09:15:00 AM, [address] [place] [address], [phone], Insurance Providers Payer Name Payer Address Payer Phone Subscriber Number Group Number Insured Name Patient Relationship to Insured Coverage Start Date Coverage End Date Medicare National Govt [email or web address] [address] [place] [address] [id number] Deedee Allen Self - patient is the insured [employer] [address] [place] [address] [id number] Deedee Allen Self - patient is the insured Medical (General) History Medical History History ICD Code Cataracts Numbness Surgical History Surgery Date(Month/Year) torn meniscus tonsillectomy colonoscopy Hospitalization History Reason Date(Month/Year) Childbirth x4
--- OUTSIDE RECORDS SUMMARY | 2025-01-13 08:41 | XMS_ITS ---
Author Organization Olegario Lu MD Address [address] [place] [phone] Care Team Providers Care Cone Operator Name Role Phone Olegario Lu Primary Care Provider [phone] REASON FOR VISIT HDF Immunizations Vaccine Route Administration Date Status Comme nts Influenza High Dose IM Intramuscular 07/16/2024 Administer ed Encounters Encounter Location Date Provider Diagnosis Olegario Lu MD [address] [place] [phone] 07/16/2024 Olegario Lu Encounter for immunization Z23 Assessments Encounter Date Diagnosis (ICD Code) Assessment Notes Treatment Notes Treatment Clinical Notes Section Notes 07/16/2024 Encounter for immunization (ICD-10 - Z23) Plan Of Treatment Next Appt Details Provider Name:Olegario cortez, 04/25/2025 08:00:00 AM, [address] [place] [address], [address], [phone], Provider Name:Olegario cortez, 05/02/2025 10:30:00 AM, [address] [place] [address], [address], [phone], Progress Notes * Deedee ALLEN LDOB: [birth year] (89 yo F)Acc No.[id number]:07/16/2024 Progress Note Patient:?Deedee ALLEN Provider:?Olegario Lu MD :1935???Age:89 Y???Sex:Female D ate:07/16/2024 Address:[address] [place] [id number] Subjective: * Chief Complaints: * ???1. HDF. * Medical History:? Objective: * Vitals:? Assessment: * Assessment: 1.?Encounter for immunizatio n - Z23 (Primary)??? Plan: * Treatment: * Immunizations:? Influenza High Dose : 0.5 mL (Dose No:1) (Route: Intramuscular) given by Jihan Alexis , Office Staff on Left Deltoid * Procedure Codes:?43190 FLU V ACC PRSV FREE INC ANTIG, G0008 ADMN FLU VAC NO FEE SCHED SAME DAY * * The named appointment provid er may or may not be the originator of this progress note, and it is not deemed complete until electronically signed by the appointment provider. Sign off status: Pending * Provider:?Olegario Lu MD Date:?0 07/16/2024 Generated for Kate hernández/Ananth/Sunitaitting on:?01/13/2025 08:40 AM EDT
--- OUTSIDE RECORDS SUMMARY | 2025-01-13 08:41 | XMS_ITS ---
Author Organization Olegario Lu MD Address [address] [place], [place] [phone] Care Team Providers Care Public Administration Teacher Name Role Phone Olegario Lu Primary Care Provider [phone] Results Component Value Reference Range Notes Complete Blood Count Auto Di ff Reviewed date:04/20/2024 12:52:40 PM Interpretation: Performing Lab:[facility], [address] [place] [phone] Notes/Report: White Blood Count 4.8 4.8-10.8 X10*3/uL Red Blood Count 4.23 4.20-5.50 X10*6/uL Hemoglobin 13.2 12.0-16.0 g/dl Hematocrit 40.1 37.0-47.0 % Mean Corpuscular Volume 94.8 80.0-98.0 fL Mean Corpuscular Hemoglobin 31.2 27.0-33.0 pg Mean Corpuscular HGB Conc 32.9 31.0-35.0 g/dl Red Cell Distribution Width 14.1 11.0-16.0 % Platelet Count 301 160-400 X10*3/uL Mean Platelet Volume 9.0 9.4-12.3 fL Neutrophils Percent Auto 71.1 45-73 % Imm Gran Pct Auto 0.4 0.0-0.4 % Lymphocytes Percent Auto 14.3 20-40 % Monocytes Percent Auto 13.6 2-11 % Eosinophils Percent Auto 0.0 0-4 % Basophils Percent Auto 0.6 0-2 % NRBC Pct Auto 0.0 0.0-0.2 /100WBC Neutrophils Absolute Auto 3.4 2.0-8.3 x10*3/u L Imm Gran Abs Auto 0.02 0.00-0.03 X10*3/uL Lymphocytes Absolute Auto 0.7 1.2-4.9 X10*3/u L Monocytes Absolute Auto 0.7 0.1-1.2 X10*3/uL Eosinophils Absolute Auto 0.0 0.0-0.4 X10*3/u L Basophils Absolute Auto 0.0 0.0-0.2 X10*3/uL NRBC Abs Auto 0.000 0.0-0.012 X10*3/uL Lipid Panel Reviewed date:04/20/2024 12:51:59 PM Interpretation: Performing Lab:[facility], [address] [place] [phone] Notes/Report: Triglycerides 72 <150 mg/dL Desirable Triglyceride: less than 150 mg/dL Borderline High Triglyceride 150-199 mg/dL High Triglyceride: 200-499 mg/dL Very High Triglyceride: greater than or equal to 5OO mg/dL Cholesterol 184 <200 mg/dL Desirable Cholesterol: less than 200 mg/dL Borderline High Cholesterol: 200-239 mg/dL High Cholesterol: greater than 239 mg/dL LDL Cholesterol Calculated 114 <100 mg/dL Desirable LDL: less than 100 mg/dL Near Optimal/Above Optimal LDL: 110-129 mg/dL Borderline High LDL: 130-159 mg/dL High LDL: 160-189 mg/dL Very High LDL: greater than or equal to 190 mg/dL HDL Cholesterol 56 >40 mg/dL Desirable HDL: greater than 40 mg/dL Note: This HDL assay may give artificially low results in patients with liver disease. REASON FOR VISIT yearly labs Encounters Encounter Location Date Provider Diagnosis Olegario Lu MD [address] [place] [address] [address] [place], [place] [phone] 04/20/2024 Olegario Lu Labile hypertension I10 and Leukopenia, unspecified type D72.819 Assessments Encounter Date Diagnosis (ICD Code) Assessment Notes Treatment Notes Treatment Clinical Notes Section Notes 04/20/2024 Labile hypertension (ICD-10 - I10) 04/20/2024 Leukopenia, unspecified type (ICD-10 - D72.819) Plan Of Treatment Next Appt Details Provider Name:Olegario cortez, 04/25/2025 08:00:00 AM, [address], [address], [place], [place], [phone], Provider Name:Olegario العلي ier, 05/02/2025 10:30:00 AM, [address] [facility], [address], [place], [place], [phone], Progress Notes * Deedee ALLEN LDOB: [birth year] (89 yo F)Acc No.[id number]:04/20/2024 Progress Note Patient:?Deedee ALLEN Provider:?Olegario Lu MD :1935???Age:89 Y???Sex:Female D ate:04/20/2024 Address:[address] [place], [place] [phone] Subjective: * Chief Complaints: * ???1. Yearly labs. * Medical History:? Objective: * Vitals:? Assessment: * Assessment: 1.?Labile hypertension - I10 (Primary)???2.?Leukopenia, unspecified type - D72.819??? Plan: * Treatment: 2.?Leukopenia, unspecified t ype?LAB: [facility]. Panel Fast (Order Cancelled) ?LAB: UA ClnCatch+Micro w/rflx Cult (Order Cancelled) ?LAB: Complete Blood Count Auto Diff (Collection Date & Time - 04/20/2024 07:30 AM) ?LAB: Lipid Panel (Collection Date & Time - 04/20/2024 07:30 AM) * Procedure Codes:?80562 VENIP UNCT, ROUTINE* * * The named appointment provid er may or may not be the originator of this progress note, and it is not deemed complete until electronically signed by the appointment provider. Sign off status: Pending * Provider:?Olegario Lu MD Date:?0 04/20/2024 Generated for Printi ng/Fadollyg/eTransmitting on:?01/13/2025 08:40 AM EDT
== END 2025-01-13 08:19 | disposition home or self-care (01) ==
LOC: HO.MAMMO 08:18
PROVIDERS: PCP Internal Medicine; Visit Provider Internal Medicine
DX: Z12.31 Encounter for screening mammogram for malignant neoplasm of breast (principal)
CPT/HCPCS: 77063; 77067

== ENCOUNTER → 2025-01-13 08:30 | Outpatient (BNV) | payer MEDICARE, SELFPAY | PROVIDERS: PCP Internal Medicine; Visit Provider Internal Medicine | DX: Z12.31 Encounter for screening mammogram for malignant neoplasm of breast (principal) | CPT/HCPCS: 77063; 77067 ==